=== PATIENT | female | born 1995 ===

== ENCOUNTER 2023-09-26 09:25 | Outpatient (CLI) | payer OTHER | END 2023-09-26 09:27 | disposition home or self-care (01) | LOC: PRENATAL 09:25 | PROVIDERS: ATTEND Obstetrics & Gynecology Maternal & Fetal Medicine | DX: O26.849 Uterine size-date discrepancy, unspecified trimester (principal); O36.8199 Decreased fetal movements, unspecified trimester, other fetus; O34.219 Maternal care for unspecified type scar from previous cesarean delivery; O09.219 Supervision of pregnancy with history of pre-term labor, unspecified trimester; O41.00X0 Oligohydramnios, unspecified trimester, not applicable or unspecified; Z3A.33 33 weeks gestation of pregnancy ==